=== PATIENT | female | born 1985 | race African-American/Black ===

== ENCOUNTER 2023-08-01 02:45 | Inpatient (IN) | payer MEDICAID, OTHER ==
[2023-08-01] VITALS (9 sets, daily range): BP systolic 125–140; BP diastolic 68–88; PULSE 102–127; RESP 16–28; TEMP 98–99.6; O2SAT 20–100
[~2023-08-01] VITALS: Ht 162.6 cm; Wt 81.8 kg
[2023-08-01 03:45] LABS: Eosinophils # (auto) 0 10 ^3/uL (0-0.8); Hemoglobin 9.1 g/dL (12.2-16.2); Mean Corpuscular Hemoglobin 21.2 pg (28.0-32.0); Nucleated Red Blood Cells % 0.1 %
[2023-08-01 03:47] LABS: Basophils # (auto) 0 10 ^3/uL (0-0.2); Basophils % (auto) 0.2 % (0.0-2.0); Eosinophils % (auto) 0.1 % (0.0-7.0); Hematocrit 30.3 % (36.0-46.0); Lymphocytes # (auto) 2.3 10 ^3/uL (0.4-5.4); Lymphocytes % (auto) 14.1 % (10.0-50.0); Mean Corpuscular Volume 70.8 fL (80.0-100.0); Monocytes # (auto) 0.7 10 ^3/uL (0-1.3); Monocytes % (auto) 4.3 % (0.0-12.0); Neutrophils # (auto) 13.5 10 ^3/uL (1.6-8.6); Neutrophils % (auto) 81.3 % (37.0-80.0); Red Blood Cells 4.28 10^6/uL (4.0-5.20); White Blood Cell 16.6 10^3/uL (4.4-10.8)
[2023-08-01 03:57] LABS: Alanine Aminotransferase 12 U/L (7-40); Albumin 4.1 g/dL (3.2-4.8); Alkaline Phosphatase 93 U/L (46-116); Anion Gap 17 (5-15); Aspartate Aminotransferase 23 U/L (13-40); BUN/Creatinine Ratio 9.8 (10.0-20.0); Blood Urea Nitrogen 9 mg/dL (9-23); Calcium 8.5 mg/dL (8.7-10.4); Carbon Dioxide 14 mmol/L (20-30); Chloride 107 mmol/L (98-107); Glucose 158 mg/dL (74-106); Lipase 340 U/L (12-53); Potassium 2.9 mmol/L (3.5-5.1); Sodium 138 mmol/L (136-145)
[2023-08-01 03:58] LABS: Bilirubin, Total 0.2 mg/dL (0.2-1.0); Total Protein 6.8 g/dL (5.7-8.2)
[2023-08-01] MEDS: MORPHINE SULFATE 4 MG/ML SYR/VIAL IV ONE (03:59)
[2023-08-01] MEDS: POTASSIUM CHL 20MEQ/100ML 100 ML IV SCH (05:04)
[2023-08-01] MEDS: SODIUM CHLORIDE 0.9% 1,000 ML IV ONE (05:04)
[2023-08-01] MEDS: PIPERACILLIN-TAZOB 3.375GM 100 ML IV ONE (05:38)
[2023-08-01] MEDS: SODIUM CHLORIDE 0.9% 1,000 ML IV SCH (07:26)
[2023-08-01] MEDS: ONDANSETRON HCL 4 MG/2 ML VIAL IV PRN (08:16)
[2023-08-01 08:21] LABS: Urine Bacteria FEW /hpf (None Seen); Urine Blood 3+ /uL (Negative); Urine Clarity HAZY (Clear); Urine Color Yellow (Yellow); Urine Hyaline Cast FEW /lpf (0 - 2); Urine Protein, UAD 1+ (Negative); Urine Specific Gravity 1.021 (1.001-1.035); Urine Urobilinogen Normal (Negative); Urine WBC 3 /hpf (0 - 5)
[2023-08-01] MEDS: MORPHINE SULFATE INJ 2 MG/ml SYRG IV PRN (08:21)
[2023-08-01] MEDS ORDERED: GABA-339 PO (08:30)
[2023-08-01] MEDS ORDERED: MELO-335 PO (08:30)
[2023-08-01] MEDS ORDERED: MORPHINE SULFATE INJ 2 MG/ml SYRG IV PRN (08:45)
[2023-08-01] MEDS ORDERED: HYDROmorphone HCL 2 MG/ML VL/or syr IV PRN ×2 (08:45)
[2023-08-01] MEDS ORDERED: METOCLOPRAMIDE HCL 5MG/ml INJ 2ml VIAL IV PRN (08:45)
[2023-08-01] MEDS ORDERED: LIDOCAINE 2% JELLY 11ml (GLYDO) ONE (08:46)
[2023-08-01] MEDS ORDERED: DexAMETHasone SOD PHOS 10MG/1ML VIAL INJ ONE (08:48)
[2023-08-01] MEDS ORDERED: ONDANSETRON HCL 4 MG/2 ML VIAL ONE (08:48)
[2023-08-01] MEDS ORDERED: MEPERIDINE HCL (50 MG/ML) 1 ML VIAL ONE ×2 (08:48)
[2023-08-01] MEDS ORDERED: GLYCOPYRROLATE 0.2 MG/ML 1ML VIAL ONE (08:48)
[2023-08-01] MEDS ORDERED: ROCURONIUM 10MG/ML 10ML VIAL IV ONE (08:48)
[2023-08-01] MEDS ORDERED: NEOSTIGMINE 1 MG/ML INJ (10mg/10ML VIAL) ONE (08:48)
[2023-08-01] MEDS ORDERED: fentaNYL CITRATE 100 MCG/2 ML VL ONE (08:48)
[2023-08-01] MEDS ORDERED: MIDAZOLAM HCL 2MG/2ML 2ml VIAL (1mg/ml) ONE (08:48)
[2023-08-01] MEDS ORDERED: SODIUM CHLORIDE LOCK 10 ML ONE (08:48)
[2023-08-01] MEDS ORDERED: KETAMINE 50mg/ML 1ml syringe ONE (08:52)
[2023-08-01 09:07] LABS: INR 1.03 (0.9-1.15); Partial Thromboplastin Time < 20.0 SEC (24.5-34.5); Prothrombin Time 10.8 sec (9.3-11.8)
[2023-08-01] MEDS ORDERED: SUGAMMADEX 200mg/2ml Vial (100MG/ML) IV ONE (09:57)
[2023-08-01] MEDS ORDERED: ONDANSETRON HCL 4 MG/2 ML VIAL IV PRN (10:15)
[2023-08-01] MEDS: HYDROmorphone HCL 2 MG/ML VL/or syr IV ONE (10:15)
[2023-08-01] MEDS: D5W/SOD CHL 0.45%/KCL 40MEQ 1,000 ML IV SCH (13:13)
[2023-08-01] MEDS ORDERED: PIPERACILLIN-TAZOB 3.375GM 100 ML IV SCH (14:00)
[2023-08-01] MEDS: PIPERACILLIN-TAZOB 3.375GM 100 ML IV SCH (14:41)
[2023-08-02] VITALS (7 sets, daily range): BP systolic 106–151; BP diastolic 68–85; PULSE 117–130; RESP 17–26; TEMP 99.2–100.6; O2SAT 91–93
[2023-08-02] MEDS: PANTOPRAZOLE 40mg/50ML NS AE 50 ML IV SCH ×2 (00:05→05:10)
[2023-08-02 06:41] LABS: Alanine Aminotransferase 10 U/L (7-40); Albumin 3.6 g/dL (3.2-4.8); Alkaline Phosphatase 74 U/L (46-116); Anion Gap 7 (5-15); Aspartate Aminotransferase 19 U/L (13-40); BUN/Creatinine Ratio 9.4 (10.0-20.0); Blood Urea Nitrogen 12 mg/dL (9-23); Carbon Dioxide 23 mmol/L (20-30); Chloride 108 mmol/L (98-107); Glucose 126 mg/dL (74-106); Magnesium 1.7 mg/dL (1.6-2.6); Potassium 3.8 mmol/L (3.5-5.1); Sodium 138 mmol/L (136-145)
[2023-08-02 06:42] LABS: Basophils # (auto) 0 10 ^3/uL (0-0.2); Bilirubin, Total 0.4 mg/dL (0.2-1.0); Eosinophils # (auto) 0.1 10 ^3/uL (0-0.8); Mean Corpuscular Hemoglobin 21.7 pg (28.0-32.0); Total Protein 5.9 g/dL (5.7-8.2); White Blood Cell 12.1 10^3/uL (4.4-10.8)
[2023-08-02 06:46] LABS: Basophils % (auto) 0.2 % (0.0-2.0); Eosinophils % (auto) 0.6 % (0.0-7.0); Hematocrit 26.4 % (36.0-46.0); Hemoglobin 8.2 g/dL (12.2-16.2); Lymphocytes # (auto) 1.1 10 ^3/uL (0.4-5.4); Lymphocytes % (auto) 9.4 % (10.0-50.0); Mean Corpuscular Hgb Conc. 30.9 g/dL (32.0-36.0); Mean Corpuscular Volume 70.3 fL (80.0-100.0); Monocytes # (auto) 0.8 10 ^3/uL (0-1.3); Monocytes % (auto) 6.6 % (0.0-12.0); Neutrophils # (auto) 10.1 10 ^3/uL (1.6-8.6); Neutrophils % (auto) 83.2 % (37.0-80.0); Red Blood Cells 3.75 10^6/uL (4.0-5.20); Red Cell Distribution Width 21.3 % (11.8-14.3)
[2023-08-02] MEDS: SODIUM CHLORIDE 0.9% 1,000 ML IV SCH (07:30)
[2023-08-02] MEDS: cefTRIAXone 1GM/50ML D5W 50 ML IV SCH (09:35)
[2023-08-02] MEDS: PANTOPRAZOLE 40 MG/10 ML VIAL INJ IV SCH (09:35)
[2023-08-02] MEDS: metroNIDAZOLE 500MG/100ML 100 ML IV ONE (09:35)
[2023-08-02] MEDS: SODIUM CHLORIDE 0.9% 500 ML IV ONE (10:00)
[2023-08-02] MEDS: metroNIDAZOLE 500MG/100ML 100 ML IV SCH (14:13)
[2023-08-03] VITALS (7 sets, daily range): BP systolic 134–167; BP diastolic 83–91; PULSE 102–119; RESP 16–22; TEMP 98.3–99.9; O2SAT 90–98
[2023-08-03 06:44] LABS: Anion Gap 8 (5-15); Carbon Dioxide 22 mmol/L (20-30); Chloride 109 mmol/L (98-107); Potassium 3.5 mmol/L (3.5-5.1); Sodium 139 mmol/L (136-145)
[2023-08-03 06:45] LABS: Calcium 8.5 mg/dL (8.7-10.4)
[2023-08-03 06:49] LABS: Glucose 88 mg/dL (74-106)
[2023-08-03 06:50] LABS: Blood Urea Nitrogen 8 mg/dL (9-23); Lipase 55 U/L (12-53); Magnesium 1.9 mg/dL (1.6-2.6)
[2023-08-03 06:54] LABS: Basophils # (auto) 0.1 10 ^3/uL (0-0.2); Eosinophils # (auto) 0.4 10 ^3/uL (0-0.8); Hemoglobin 7.2 g/dL (12.2-16.2); Monocytes % (auto) 4.3 % (0.0-12.0)
[2023-08-03 06:56] LABS: Basophils % (auto) 0.4 % (0.0-2.0); Eosinophils % (auto) 2.6 % (0.0-7.0); Hematocrit 23.8 % (36.0-46.0); Lymphocytes # (auto) 1.7 10 ^3/uL (0.4-5.4); Lymphocytes % (auto) 11.4 % (10.0-50.0); Mean Corpuscular Hemoglobin 21.4 pg (28.0-32.0); Mean Corpuscular Hgb Conc. 30.3 g/dL (32.0-36.0); Mean Corpuscular Volume 70.7 fL (80.0-100.0); Monocytes # (auto) 0.6 10 ^3/uL (0-1.3); Neutrophils # (auto) 12.1 10 ^3/uL (1.6-8.6); Neutrophils % (auto) 81.3 % (37.0-80.0); Nucleated Red Blood Cells % 0.1 %; Red Blood Cells 3.37 10^6/uL (4.0-5.20); White Blood Cell 14.9 10^3/uL (4.4-10.8)
[2023-08-03 08:16] LABS: BUN/Creatinine Ratio 7.8 (10.0-20.0)
[2023-08-03] MEDS: SODIUM CHLORIDE 0.9% 1,000 ML IV SCH (10:00)
[2023-08-03] MEDS: MORPHINE SULFATE INJ 2 MG/ml SYRG IV PRN (13:58)
[2023-08-03] MEDS: ONDANSETRON HCL 4 MG/2 ML VIAL IV PRN (20:22)
[2023-08-04] VITALS (7 sets, daily range): BP systolic 153–167; BP diastolic 85–100; PULSE 89–105; RESP 16–97; TEMP 98.2–98.8; O2SAT 93–99
[2023-08-04 06:22] LABS: Anion Gap 11 (5-15); Carbon Dioxide 19 mmol/L (20-30); Chloride 108 mmol/L (98-107); Potassium 3.9 mmol/L (3.5-5.1); Sodium 138 mmol/L (136-145)
[2023-08-04 06:23] LABS: Calcium 8.2 mg/dL (8.7-10.4)
[2023-08-04 06:28] LABS: BUN/Creatinine Ratio 10.1 (10.0-20.0); Blood Urea Nitrogen 8 mg/dL (9-23); Glucose 73 mg/dL (74-106)
[2023-08-04 06:29] LABS: Magnesium 1.9 mg/dL (1.6-2.6)
[2023-08-04 10:47] LABS: Basophils # (auto) 0.1 10 ^3/uL (0-0.2); Monocytes # (auto) 0.6 10 ^3/uL (0-1.3); Nucleated Red Blood Cells % 0.1 %; Red Cell Distribution Width 20.8 % (11.8-14.3)
[2023-08-04 10:49] LABS: Basophils % (auto) 0.5 % (0.0-2.0); Eosinophils # (auto) 0.6 10 ^3/uL (0-0.8); Eosinophils % (auto) 5.3 % (0.0-7.0); Hematocrit 24.1 % (36.0-46.0); Hemoglobin 7.3 g/dL (12.2-16.2); Lymphocytes # (auto) 1.5 10 ^3/uL (0.4-5.4); Lymphocytes % (auto) 12.7 % (10.0-50.0); Mean Corpuscular Hemoglobin 21.4 pg (28.0-32.0); Mean Corpuscular Hgb Conc. 30.2 g/dL (32.0-36.0); Mean Corpuscular Volume 70.8 fL (80.0-100.0); Neutrophils % (auto) 76.5 % (37.0-80.0); White Blood Cell 11.8 10^3/uL (4.4-10.8)
[2023-08-04] MEDS ORDERED: CLINIMIX PER PHARMACY 0 ML IV SCH (16:15)
[2023-08-04] MEDS: AMINO ACID INFUSION IN D10W 1,000 ML IV SCH (20:55)
[2023-08-05] VITALS (7 sets, daily range): BP systolic 130–163; BP diastolic 73–95; PULSE 82–101; RESP 17–19; TEMP 98.2–99.1; O2SAT 93–96
[2023-08-05] MEDS ORDERED: DEXTROSE (50%) 50ML SYRG IV SCH
[2023-08-05] MEDS: InsuLIN REG 1unit/0.01ml Soln (100units/ml) SC SCH
[2023-08-05] MEDS: ACCU-CHEK COMFORT CURVE STRIP VI SCH (00:11)
[2023-08-05 06:46] LABS: Basophils # (auto) 0.1 10 ^3/uL (0-0.2); Basophils % (auto) 0.9 % (0.0-2.0); Eosinophils # (auto) 0.6 10 ^3/uL (0-0.8); Eosinophils % (auto) 6.2 % (0.0-7.0); Hematocrit 23.9 % (36.0-46.0); Hemoglobin 7.4 g/dL (12.2-16.2); Lymphocytes # (auto) 1.5 10 ^3/uL (0.4-5.4); Lymphocytes % (auto) 14.4 % (10.0-50.0); Mean Corpuscular Hemoglobin 21.5 pg (28.0-32.0); Mean Corpuscular Hgb Conc. 30.8 g/dL (32.0-36.0); Mean Corpuscular Volume 70.1 fL (80.0-100.0); Monocytes # (auto) 0.9 10 ^3/uL (0-1.3); Monocytes % (auto) 8.7 % (0.0-12.0); Neutrophils # (auto) 7.1 10 ^3/uL (1.6-8.6); Neutrophils % (auto) 69.8 % (37.0-80.0); Nucleated Red Blood Cells % 0.3 %; Red Blood Cells 3.41 10^6/uL (4.0-5.20); White Blood Cell 10.2 10^3/uL (4.4-10.8)
[2023-08-05 06:49] LABS: Red Cell Distribution Width 20.6 % (11.8-14.3)
[2023-08-05 07:23] LABS: Potassium 3.2 mmol/L (3.5-5.1)
[2023-08-05 07:25] LABS: Calcium 9.1 mg/dL (8.5-10.1)
[2023-08-05 07:30] LABS: BUN/Creatinine Ratio 6.4 (10.0-20.0)
[2023-08-05 07:31] LABS: Albumin 3.9 g/dL (3.2-4.8)
[2023-08-05 07:32] LABS: Phosphorus 3.1 mg/dL (2.4-5.1)
[2023-08-05 07:36] LABS: COVID19 ANTIGEN SOFIA FIA NEGATIVE (NEGATIVE); Rapid Influenza A Negative (Negative); Rapid Influenza B Negative (Negative)
[2023-08-05 07:47] LABS: Magnesium 1.9 mg/dL (1.6-2.6)
[2023-08-05 07:48] LABS: Urine Bacteria FEW /hpf (None Seen); Urine Blood Negative /uL (Negative); Urine Clarity Clear (Clear); Urine Color Yellow (Yellow); Urine Protein, UAD TRACE (Negative); Urine Specific Gravity 1.011 (1.001-1.035); Urine Urobilinogen Normal (Negative); Urine WBC 1 /hpf (0 - 5); Urine pH 6.5 (5.0-8.0)
[2023-08-05 08:02] LABS: Amphetamine Screen, Urine Neg (NEGATIVE); Barbiturate Scree,Urine Neg (NEGATIVE); Benzodiazephine Screen, Urine Neg (NEGATIVE); Cannabinoid Screen, Urine Neg (NEGATIVE); Cocaine Screen, Urine Neg (NEGATIVE); Opiate Scree,Urine Pos (NEGATIVE); Phencyclidine Screen, Urine Neg (NEGATIVE)
[2023-08-05] MEDS: POTASSIUM CHL 20MEQ/100ML 100 ML IV SCH (10:28)
[2023-08-05 12:51] LABS: % Iron Saturation 6.7 % (15-50)
[2023-08-05] MEDS: hydrALAZINE HCL 20 MG/ML VL IV PRN (13:18)
[2023-08-06] VITALS (8 sets, daily range): BP systolic 128–167; BP diastolic 80–93; PULSE 95–111; RESP 17–19; TEMP 98.5–99.2; O2SAT 94–98
[2023-08-06 06:03] LABS: Potassium 2.9 mmol/L (3.5-5.1)
[2023-08-06 06:05] LABS: Calcium 8.4 mg/dL (8.7-10.4)
[2023-08-06 06:10] LABS: BUN/Creatinine Ratio 6.8 (10.0-20.0); Magnesium 1.5 mg/dL (1.6-2.6)
[2023-08-06 06:11] LABS: Albumin 3.6 g/dL (3.2-4.8)
[2023-08-06 06:12] LABS: Phosphorus 2.9 mg/dL (2.4-5.1)
[2023-08-06 07:21] LABS: Urine Bacteria NONE SEEN /hpf (None Seen); Urine Blood Negative /uL (Negative); Urine Clarity Clear (Clear); Urine Color Yellow (Yellow); Urine Protein, UAD Negative (Negative); Urine Specific Gravity 1.013 (1.001-1.035); Urine Urobilinogen Normal (Negative); Urine WBC 1 /hpf (0 - 5)
[2023-08-06 08:10] LABS: Basophils # (auto) 0.1 10 ^3/uL (0-0.2); Eosinophils # (auto) 0.4 10 ^3/uL (0-0.8)
[2023-08-06 08:12] LABS: Basophils % (auto) 0.9 % (0.0-2.0); Hematocrit 23.6 % (36.0-46.0); Hemoglobin 7.6 g/dL (12.2-16.2); Lymphocytes # (auto) 1.4 10 ^3/uL (0.4-5.4); Lymphocytes % (auto) 13.5 % (10.0-50.0); Mean Corpuscular Hemoglobin 22.3 pg (28.0-32.0); Mean Corpuscular Hgb Conc. 32.3 g/dL (32.0-36.0); Monocytes % (auto) 9.6 % (0.0-12.0); Neutrophils # (auto) 7.4 10 ^3/uL (1.6-8.6); Nucleated Red Blood Cells % 0.4 %; Red Blood Cells 3.42 10^6/uL (4.0-5.20); White Blood Cell 10.3 10^3/uL (4.4-10.8)
[2023-08-06] MEDS: MAGNESIUM SULFATE 1GM/100ML 100 ML IV ONE (09:17)
[2023-08-06] MEDS: POTASSIUM CHL 20MEQ/100ML 100 ML IV ONE (09:17)
[2023-08-06] MEDS: LACTATED RINGER'S 1,000 ML IV SCH (09:27)
[2023-08-06 10:19] LABS: Folate (Folic Acid) 16.06 ng/mL (>5.38)
[2023-08-06 10:20] LABS: Ferritin 55.4 ng/mL (10-291)
[2023-08-06 10:20] LABS: Hypochromia Moderate; Platelet Estimate Increased; Target Cell FEW
[2023-08-06] MEDS: IRON SUCROSE COMPLEX 100 ML IV SCH (12:40)
[2023-08-06] MEDS ORDERED: IOHEXOL 350 MG/ML 100ML IJ ONE (12:58)
[2023-08-06] MEDS ORDERED: GASTROGRAFIN 120 ML SOL ONE (13:18)
[2023-08-06] MEDS: POTASSIUM CHL 20MEQ/100ML 100 ML IV SCH (18:52)
[2023-08-06] MEDS: LOSARTAN POTASSIUM 25 MG TAB PO ONE (19:25)
[2023-08-06] MEDS: DOXYCYCLINE 100 MG TAB/CAP PO SCH (21:40)
[2023-08-07 05:00] VITALS: BP 129/80; PULSE 94; RESP 20; TEMP 98.7; O2SAT 96
[2023-08-07 06:30] LABS: Basophils # (auto) 0.1 10 ^3/uL (0-0.2); Basophils % (auto) 0.7 % (0.0-2.0); Eosinophils # (auto) 0.5 10 ^3/uL (0-0.8)
[2023-08-07 06:32] LABS: Eosinophils % (auto) 3.9 % (0.0-7.0); Hemoglobin 7.9 g/dL (12.2-16.2); Lymphocytes % (auto) 17.1 % (10.0-50.0); Mean Corpuscular Hgb Conc. 31.5 g/dL (32.0-36.0); Mean Corpuscular Volume 69.9 fL (80.0-100.0); Monocytes # (auto) 1.1 10 ^3/uL (0-1.3); Monocytes % (auto) 9.3 % (0.0-12.0); Neutrophils # (auto) 8.1 10 ^3/uL (1.6-8.6); Nucleated Red Blood Cells % 1.1 %; Red Blood Cells 3.58 10^6/uL (4.0-5.20); White Blood Cell 11.7 10^3/uL (4.4-10.8)
[2023-08-07 06:36] LABS: Red Cell Distribution Width 20.9 % (11.8-14.3)
[2023-08-07 06:49] LABS: Albumin 3.6 g/dL (3.2-4.8); Alkaline Phosphatase 67 U/L (46-116); Anion Gap 8 (5-15); Aspartate Aminotransferase 13 U/L (13-40); Bilirubin, Total 0.2 mg/dL (0.2-1.0); Calcium 8.6 mg/dL (8.7-10.4); Carbon Dioxide 21 mmol/L (20-30); Chloride 108 mmol/L (98-107); Glucose 123 mg/dL (74-106); Magnesium 1.7 mg/dL (1.6-2.6); Phosphorus 3.3 mg/dL (2.4-5.1); Sodium 137 mmol/L (136-145); Total Protein 6.1 g/dL (5.7-8.2)
[2023-08-07 06:55] LABS: Alanine Aminotransferase < 9 U/L (7-40); BUN/Creatinine Ratio 6.6 (10.0-20.0); Blood Urea Nitrogen < 5 mg/dL (9-23)
[2023-08-07 07:33] VITALS: PULSE 89
[2023-08-07] MEDS: POTASSIUM CHL 20 Meq TABLET PO ONE (08:30)
[2023-08-07 08:47] VITALS: BP 133/84; PULSE 87; RESP 17; TEMP 98.2; O2SAT 96
[2023-08-07] MEDS: PANTOPRAZOLE 40 MG TAB PO SCH (10:14)
[2023-08-07] MEDS: LOSARTAN POTASSIUM 25 MG TAB PO SCH (10:15)
[2023-08-07] MEDS ORDERED: POTA10TA51 PO (10:49)
[2023-08-07] MEDS ORDERED: MAGN400T40 PO (10:49)
[2023-08-07] MEDS ORDERED: LOSA25TA15 PO (10:49)
[2023-08-07] MEDS ORDERED: PANT40TA2 PO (10:49)
[2023-08-07 13:00] VITALS: BP 149/88; PULSE 90; RESP 17; TEMP 98; O2SAT 97
== END 2023-08-07 14:45 | disposition home or self-care (01) | DRG 220 ==
LOC: ER 02:45 → EDBD 02:45 → OVERFLOW 06:29 → CENTRAL 11:29 → TELE-CENTR 08-05 23:58
PROVIDERS: ADMIT Internal Medicine Geriatric Medicine; ATTEND Internal Medicine Geriatric Medicine
PROC: 0DU607Z Supplement Stomach with Autologous Tissue Substitute, Open Approach (ICD-10-PCS; principal; 2023-08-01 09:09)
DX: K27.5 Chronic or unspecified peptic ulcer, site unspecified, with perforation (principal); N17.0 Acute kidney failure with tubular necrosis; J15.69 Pneumonia due to other Gram-negative bacteria; J15.9 Unspecified bacterial pneumonia; R65.10 Systemic inflammatory response syndrome (SIRS) of non-infectious origin without acute organ dysfunction; E86.0 Dehydration; E83.42 Hypomagnesemia; I10 Essential (primary) hypertension; E87.6 Hypokalemia; E66.8 Other obesity; Z20.822 Contact with and (suspected) exposure to COVID-19; D50.9 Iron deficiency anemia, unspecified; Z68.31 Body mass index [BMI] 31.0-31.9, adult; Z82.49 Family history of ischemic heart disease and other diseases of the circulatory system; D72.828 Other elevated white blood cell count
CPT/HCPCS: 36415; 71045; 71260; 74176; 74177; 74246; 76775; 80048; 80053; 80069; 80307; 80320; 81001; 82607; 82728; 82746; 82962; 83010; 83540; 83550; 83615; 83690; 83735; 83880; 84100; 84443; 84484; 84702; 85025; 85045; 85610; 85730; 86850; 86900; 86901; 87040; 87070; 87075; 87077; 87081; 87086; 87186; 87205; 87426; 87804; 93306; 93970; 96365; 96367; 96375; C9113; G0378; J1100; J1756; J1815; J2250; J2405; J2543; J3480; J3490

== ENCOUNTER 2024-03-23 14:33 | Emergency (ER) | payer MEDICAID ==
[2024-03-23 14:33] VITALS: RESP 36
[~2024-03-23 14:33] MED LIST: LOSA-533 PO; MAGN400T40 PO; PANT40TA2 PO; POTA-36 PO
[2024-03-23 14:38] VITALS: BP 207/173; O2SAT 0
[2024-03-23] MEDS ORDERED: ROCURONIUM 10MG/ML 10ML VIAL IV ONE ×2 (14:39→14:45)
[2024-03-23] MEDS ORDERED: ETOMIDATE (2MG/ML) 20ML VIAL IV ONE ×2 (14:39→14:45)
[2024-03-23] MEDS ORDERED: NOREPINEPHRINE 8 MG/250ML KIT 250 ML IV SCH ×2 (14:45→15:15)
[2024-03-23] MEDS ORDERED: NOREPINEPHRINE 8 MG/250ML KIT 250 ML IV ONE (14:49)
[2024-03-23 14:53] VITALS: PULSE 119
[2024-03-23] MEDS ORDERED: EPINEPHrine HCL 250 ML IV ONE (15:01)
[2024-03-23] MEDS ORDERED: EPINEPHrine HCL 1 MG/10 ML SYRG ONE ×8 (15:08→15:46)
[2024-03-23] MEDS ORDERED: EPINEPHrine HCL 250 ML IV SCH (15:15)
[2024-03-23 15:32] LABS: Basophils # (auto) 0.1 10 ^3/uL (0-0.2); Basophils % (auto) 0.4 % (0.0-2.0); Eosinophils # (auto) 0 10 ^3/uL (0-0.8); Eosinophils % (auto) 0.1 % (0.0-7.0); Hematocrit 28.8 % (36.0-46.0); Red Blood Cells 4.16 10^6/uL (4.0-5.20)
[2024-03-23 15:33] LABS: Hemoglobin 7.9 g/dL (12.2-16.2); Lymphocytes # (auto) 6.5 10 ^3/uL (0.4-5.4); Lymphocytes % (auto) 31.4 % (10.0-50.0); Mean Corpuscular Hemoglobin 18.9 pg (28.0-32.0); Mean Corpuscular Hgb Conc. 27.3 g/dL (32.0-36.0); Mean Corpuscular Volume 69.2 fL (80.0-100.0); Monocytes # (auto) 1.5 10 ^3/uL (0-1.3); Monocytes % (auto) 7.2 % (0.0-12.0); Neutrophils # (auto) 12.6 10 ^3/uL (1.6-8.6); Neutrophils % (auto) 60.9 % (37.0-80.0); Nucleated Red Blood Cells % 0.5 %; Platelet Count (auto) 224 10^3/uL (140-450); White Blood Cell 20.7 10^3/uL (4.4-10.8)
[2024-03-23] MEDS ORDERED: TENECTEPLASE 50mg/10ml KIT IV ONE (15:34)
[2024-03-23 15:37] LABS: Red Cell Distribution Width 22.8 % (11.8-14.3)
[2024-03-23] MEDS ORDERED: HEPARIN DRIP/D5W 100UNITS/ML 250 ML IV ONE (15:41)
[2024-03-23] MEDS ORDERED: HEPARIN DRIP/D5W 100UNITS/ML 250 ML IV SCH ×2 (15:45→16:15)
[2024-03-23 15:48] LABS: Alanine Aminotransferase 199 U/L (7-40); Albumin 3.4 g/dL (3.2-4.8); Alkaline Phosphatase 92 U/L (46-116); Anion Gap 33 (5-15); Aspartate Aminotransferase 333 U/L (13-40); BUN/Creatinine Ratio 11.5 (10.0-20.0); Blood Urea Nitrogen 21 mg/dL (9-23); Calcium 10.9 mg/dL (8.7-10.4); Carbon Dioxide 17 mmol/L (20-31); Chloride 105 mmol/L (98-107); Glucose 95 mg/dL (74-106); Sodium 155 mmol/L (136-145)
[2024-03-23 15:49] LABS: Total Protein 5.7 g/dL (5.7-8.2)
[2024-03-23 15:54] LABS: INR 1.52 (0.9-1.15); Partial Thromboplastin Time 22.2 SEC (24.5-34.5); Prothrombin Time 15.6 sec (9.3-11.8)
[2024-03-23 16:51] LABS: Lactic Acid w/Reflex 26.6 mmol/L (0.4-2.0)
== END 2024-03-23 19:45 | disposition short-term general hospital (02) ==
LOC: ER 14:33 → EDBD 14:33 → ER 19:45
DX: O99.412 Diseases of the circulatory system complicating pregnancy, second trimester (principal); I46.9 Cardiac arrest, cause unspecified; O99.332 Smoking (tobacco) complicating pregnancy, second trimester; F17.200 Nicotine dependence, unspecified, uncomplicated; I48.92 Unspecified atrial flutter; J45.909 Unspecified asthma, uncomplicated; Z3A.15 15 weeks gestation of pregnancy; Z79.899 Other long term (current) drug therapy
CPT/HCPCS: 31500; 36415; 36556; 36600; 80053; 82805; 83605; 84484; 85025; 85610; 85730; 92950; 93005; 99285; J0171; J1644; J3101